=== PATIENT | male | born 2000 | race Caucasian/White ===

== ENCOUNTER 2021-11-22 21:36 | Emergency (ER) | payer BC ==
[~2021-11-22] VITALS: Ht 175.3 cm; Wt 70.5 kg
[2021-11-23] MEDS ORDERED: HYDROCODONE/ACETAMINOPHEN 10/325MG TABLET PO ONE (01:15)
[2021-11-23 03:40] VITALS: BP 114/78
== END 2021-11-23 03:54 | disposition home or self-care (01) ==
LOC: ER 21:36
DX: R68.84 Jaw pain (principal)
CPT/HCPCS: 70486; 99284